=== PATIENT | male | born 1965 | race Caucasian/White ===

== ENCOUNTER 2018-10-16 16:43 | Emergency (ER) | payer BC, MEDICAID ==
[2018-10-16] MEDS ORDERED: Lidocaine 1% with EPINEPHrine 1:100,000 20 ML MDV ONE (17:45)
--- NOTE | 2018-10-16 18:21 | EDM.PDOC ---
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 Accidentally the finish grinder sipped and the blade hit the right hand over the dorsum of the hand. Happened just prior to arrival. Pt did wash the wound under clear running water and apply pressure and came into emergency room.No tingling or numbness. No pain in the wound. But actively bleeding. Pt is up to date on his tetanus . No other injuries. Onset: Today Onset Time: 16:00 Location: Reports: Upper Extremity, Right Quality: Reports: Ache Severity: Mild Improves with: Reports: None Worsens with: Reports: None Associated Symptoms: Denies: Confusion, Chest Pain, Cough, Diaphoresis, Fever/ Chills, Headaches, Nausea/Vomiting, Rash, Seizure, Shortness of Breath, Syncope , Weakness - Related Data Allergies Allergy/AdvReac Type Severity Reaction Status Date / Time No Known Allergies Allergy Verified 07/05/18 16:02 Home Meds: Home Meds NK [No Known Home Meds] 07/05/18 [History] Past Medical History - Past Health History Medical/Surgical History: Denies Medical/Surgical History ED ROS GENERAL - Review of Systems Review Of Systems: See Below Constitutional: Denies: Fever, Chills HEENT: Denies: Rhinitis, Throat Pain Respiratory: Denies: Shortness of Breath, Pleuritic Chest Pain, Cough, Sputum Cardiovascular: Denies: Chest Pain, Lightheadedness GI/Abdominal: Denies: Abdominal Pain, Nausea, Vomiting : Denies: Dysuria, Frequency Musculoskeletal: Denies: Joint Pain, Joint Swelling Skin: Reports: Bruising, Wound. Denies: Pruritis, Rash Neurological: Denies: Confusion, Dizziness, Numbness, Tingling ED EXAM, GENERAL - Physical Exam Exam: See Below Exam Limited By: No Limitations General Appearance: Alert, WD/WN, No Apparent Distress Eye Exam: Bilateral Eye: EOMI, PERRL Ears: Normal External Exam, Normal Canal, Hearing Grossly Normal, Normal TMs Ear Exam: Bilateral Ear: Auricle Normal, Canal Normal, TM normal Nose: Normal Inspection, Normal Mucosa, No Blood Throat/Mouth: Normal Inspection, Normal Lips, Normal Teeth, Normal Gums, Normal Oropharynx, Normal Voice, No Airway Compromise Head: Atraumatic, Normocephalic Neck: Normal Inspection, Supple, Non-Tender, Full Range of Motion Respiratory/Chest: No Respiratory Distress, Lungs Clear, Normal Breath Sounds, No Accessory Muscle Use, Chest Non-Tender Cardiovascular: Normal Peripheral Pulses, Regular Rate, Rhythm, No Edema, No Gallop, No JVD, No Murmur, No Rub Extremities: Normal Inspection, Normal Range of Motion, Non-Tender, Normal Capillary Refill, No Pedal Edema Skin Exam: Warm, Intact, Other (Right hand: there is a 2.5cm long clean clear cut laceration over the dorsum of the hand over the websapce between the thumb and Index finger. The cut is extending into subcutaneous tissue. No muscle involvement. Pt has Good ROM motion of the small joints of the finger. Good Hand systems analyst developer. Wound is actively bleeding.) ED GENERAL MEDICAL PROCEDURES - Laceration/Wound Repair Right Hand Lac/wound length in cm: 2.5 Appearance: Superficial, Subcutaneous, Linear Distal NVT: Neuro & Vascular Intact Anesthetic Type: Local Local Anesthesia - Lidocaine (Xylocaine): 1% with EPI Local Anesthetic Volume: 2cc Skin Prep: Providone-Iodine (Betadine), Saline Saline irrigation (cc's): 50 Closed with: Sutures Suture Size: 4-0 # of Sutures: 5 Suture Type: Interrupted, Other (ethilon) Sterile Dressing Applied: Provider Tetanus Status Addressed: Yes Complications: No Course - Vital Signs Text/Narrative:: Pt reassured, after consent obtained, the wound was closed under septic precautions. Simple pressure dressing applied. Advised not to wet wound for 2 days. after that can shower and let soap and water run on it. Apply simple antibiotic ointment and keep it covered. Suture removal in 1 wk. Wound care and infection precautions discussed. Advised not to do heavy duty work with his right hand for 1 wk.Followup with primary care provider for suture removal. Departure - Departure Time of Disposition: 18:15 Disposition: Home, Self-Care 01 Condition: Good Clinical Impression: Hand laceration - Discharge Information *PRESCRIPTION DRUG MONITORING PROGRAM REVIEWED*: Not Applicable *COPY OF PRESCRIPTION DRUG MONITORING REPORT IN PATIENT JAVIER: Not Applicable Instructions: Laceration Care, Adult Care Plan Goals: Keep dry x 2 days. Can have clean water on it to rinse off after that. No scrubbing. After rinsing put antibiotic ointment on it. On day 7 can have sutures removed. Can go to and have Nyasia Smith CNP remove them if you would like. Watch for signs of infection, redness, increased pain, purulent drainage and return to Health care provider with any of these symptoms. No use of right hand. - Problem List & Annotations (1) Hand laceration SNOMED Code(s): 766088021 Code(s): S61.419A - LACERATION WITHOUT FOREIGN BODY OF UNSP HAND, INIT ENCNTR Status: Acute - Problem List Review Problem List Initiated/Reviewed/Updated: Yes - Assessment/Plan Assessment:: 2.5 cm right hand laceration Plan: Pt reassured, after consent obtained, the wound was closed under septic precautions. Simple pressure dressing applied. Advised not to wet wound for 2 days. after that can shower and let soap and water run on it. Apply simple antibiotic ointment and keep it covered. Suture removal in 1 wk. Wound care and infection precautions discussed. Advised not to do heavy duty work with his right hand for 1 wk.Followup with primary care provider for suture removal.
== END 2018-10-16 18:06 | disposition home or self-care (01) ==
LOC: LB.ED 16:43
DX: S61.411A Laceration without foreign body of right hand, initial encounter (principal); W31.89XA Contact with other specified machinery, initial encounter
CPT/HCPCS: 12001; 99283

== ENCOUNTER 2020-06-16 14:06 | Emergency (ER) | payer BC, MEDICAID ==
[2020-06-16] MEDS: Ketorolac 60 MG/2 ML SDV IM ONE (15:28)
[2020-06-16] MEDS: Diphtheria,Pertussis(Acell),Tetanus Vaccine 0.5 ML SDV IM ONE (15:36)
--- NOTE | 2020-06-16 15:37 | EDM.PDOC ---
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 Last tetanus immunization 2013. No loss of motion, no numbness/tingling. - Related Data Allergies Allergy/AdvReac Type Severity Reaction Status Date / Time No Known Allergies Allergy Verified 06/16/20 15:14 Home Meds: Home Meds RX: Tiotropium [Spiriva HandiHaler] 1 inhalation INH DAILY 06/16/20 [History] Past Medical History - Past Health History Medical/Surgical History: Denies Medical/Surgical History Review of Systems - Review of Systems Review Of Systems: See Below Constitutional: Reports: No Symptoms Respiratory: Reports: No Symptoms Cardiovascular: Reports: No Symptoms Musculoskeletal: Reports: Hand Pain, Other (left hand puncture wound) Skin: Reports: Wound Neurological: Reports: No Symptoms Psychiatric: Reports: No Symptoms ED EXAM, GENERAL - Physical Exam Exam: See Below Exam Limited By: No Limitations General Appearance: Alert, No Apparent Distress Respiratory/Chest: No Respiratory Distress Peripheral Pulses: 2+: Radial (L) Extremities: Normal Range of Motion, Normal Capillary Refill, Other (puncture wounds to left ventral thumb muscle and dorsal webbing between 1st and 2nd digit; no deformity; no bleeding; patient able to make ok sign, thumbs up sign, and make fist) Psychiatric: Normal Affect, Normal Mood Skin Exam: Warm, Dry, Wound/Incision Course - Vital Signs Text/Narrative:: toradol 60 mg IM, wound cleaned by nursing, tetanus immunization given. XR negative for fractures or foreign bodies. - Orders/Labs/Meds Orders: Active Orders 24 hr Category Date Time Status Vaccines to be Administered [RC] PER UNIT ROUTINE Care 06/16/20 15:17 Active Hand Comp Min 3V Lt [CR] Stat Exams 06/16/20 15:15 Taken Meds: Medications Discontinued Medications Generic Name Dose Route Start Last Admin Trade Name Freq PRN Reason Stop Dose Admin Diphtheria/Tetanus/Acell Pertussis 0.5 ml 06/16/20 15:16 Boostrix IM 06/16/20 15:17 .ONCE ONE Ketorolac Tromethamine Confirm 06/16/20 15:19 Toradol Administered 06/16/20 15:20 Dose 60 mg .ROUTE .STK-MED ONE Ketorolac Tromethamine 60 mg 06/16/20 15:14 Toradol IM 06/16/20 15:15 ONETIME ONE Departure - Departure Time of Disposition: 15:50 Disposition: Home, Self-Care 01 Condition: Good Clinical Impression: Puncture wound - Discharge Information *PRESCRIPTION DRUG MONITORING PROGRAM REVIEWED*: Not Applicable *COPY OF PRESCRIPTION DRUG MONITORING REPORT IN PATIENT JAVIER: Not Applicable Referrals: PCP,None [Primary Care Provider] - Additional Instructions: Keep hand clean and dry. No soaking hand. No peroxide. No ointments. Shower fine. Return to the ED for fever >102, unable to tolerate fluids, or hand swelling/redness. can take motrin tomorrow as directed after 4 pm with food. tylenol as directed for pain. - My Orders Last 24 Hours: My Active Orders 06/16/20 15:15 Hand Comp Min 3V Lt [CR] Stat 06/16/20 15:17 Vaccines to be Administered [RC] PER UNIT ROUTINE - Assessment/Plan Last 24 Hours: My Active Orders 06/16/20 15:15 Hand Comp Min 3V Lt [CR] Stat 06/16/20 15:17 Vaccines to be Administered [RC] PER UNIT ROUTINE
[2020-06-16] MEDS: Ketorolac 60 MG/2 ML SDV ONE (15:39)
--- NOTE | 2020-06-17 09:19 | CR ---
Date of Service: 06/16/20 Clinical Data: puncture wound LEFT HAND: There is soft tissue swelling adjacent to the distal phalanx of the thumb. There are mild osteoarthritic changes involving multiple joints. No acute fracture or dislocation. No lytic or blastic bone lesions. No radio dense foreign bodies. [id number] [facility]
== END 2020-06-16 16:45 | disposition home or self-care (01) ==
LOC: LB.ED 14:06
DX: S61.432A Puncture wound without foreign body of left hand, initial encounter (principal); Z23 Encounter for immunization; W31.0XXA Contact with mining and earth-drilling machinery, initial encounter
CPT/HCPCS: 73130-LT; 90471; 90715; 96372; 99283-25; J1885

== ENCOUNTER 2021-02-12 17:06 | Emergency (ER) | payer BC, MEDICAID ==
[2021-02-12] MEDS ORDERED: Amoxicillin/Clavulanate K 875-125 MG Tab PO ONE (17:45)
--- NOTE | 2021-02-12 17:55 | EDM.PDOC ---
ED HPI GENERAL MEDICAL PROBLEM - General Chief Complaint: General Stated Complaint: TOOTHACHE Time Seen by Provider: 02/12/21 17:40 Source of Information: Reports: Patient History Limitations: Reports: No Limitations - History of Present Illness INITIAL COMMENTS - FREE TEXT/NARRATIVE: pt states tooth sensitivity to left lower 1st bicuspid with swelling and pain to left lower gumline. pt denies fever, chills, drainage. history of dental infections and poor dentition including dental caries. symptoms started approximately 3-4 days ago and worsened throughout the day today. Left Tooth/Teeth Pain Score (Numeric/FACES): 10 - Related Data Allergies Allergy/AdvReac Type Severity Reaction Status Date / Time No Known Allergies Allergy Verified 02/12/21 17:42 Home Meds: Home Meds Tiotropium [Spiriva HandiHaler] 1 inhalation INH DAILY 06/16/20 [History] Amoxicillin/Potassium Clav [Augmentin 875-125 Tablet] 1 each PO BID 7 Days #14 tablet 02/12/21 [Rx] Past Medical History - Past Health History Medical/Surgical History: Denies Medical/Surgical History Respiratory History: Reports: COPD Social & Family History - Tobacco Use Years of Tobacco use: 40 Packs/Tins Daily: 1 - Caffeine Use Caffeine Use: Reports: Coffee - Recreational Drug Use Recreational Drug Use: No ED ROS GENERAL - Review of Systems Review Of Systems: Comprehensive ROS is negative, except as noted in HPI. ED EXAM, GENERAL - Physical Exam Exam: See Below Exam Limited By: No Limitations General Appearance: Alert, WD/WN, No Apparent Distress Throat/Mouth: Normal Lips, Inflammation, Other (swelling and TTP to left lower buccal gumline. no swelling or TTP to lingual gumline of left lower. diffuse poor dentition with multiple caries. left lower 1st bicuspid is broken and missing posterior portion for unknown time.) Neurological: Alert, Oriented, Normal Cognition, Normal Gait Psychiatric: Normal Affect, Normal Mood Skin Exam: Warm, Dry, Intact, No Rash ED GENERAL MEDICAL PROCEDURES - Additional/Other Procedure(s) Other (Free Text) Procedure(s): discussed risks and benefits of dental block of left lower bicuspid to include relief of pain vs risk of nerve damage, vessel damage, pt agreeable to dental block. verbal consent provided by pt. 3ml of bupivicaine 0.5% at Inferior alveolar block and 1ml as incisive block. pt states almost complete relief from pain. no adverse events noted and pt tolerated procedure well. Course - Vital Signs Last Recorded V/S: Last Vital Signs Temp 97.7 F 02/12/21 17:44 Pulse 92 02/12/21 17:44 Resp 20 02/12/21 17:44 BP 129/84 02/12/21 17:44 Pulse Ox 97 02/12/21 17:44 - Orders/Labs/Meds Meds: Medications Discontinued Medications Generic Name Dose Route Start Last Admin Trade Name Damien PRN Reason Stop Dose Admin Amoxicillin/Clavulanate Potassium 1 tab 02/12/21 17:45 Amoxicillin/Clavulanate K 875-125 Mg Tab PO 02/12/21 17:46 ONETIME ONE Departure - Departure Time of Disposition: 18:21 Disposition: Home, Self-Care 01 Condition: Good Clinical Impression: Dental infection - Discharge Information *PRESCRIPTION DRUG MONITORING PROGRAM REVIEWED*: Not Applicable *COPY OF PRESCRIPTION DRUG MONITORING REPORT IN PATIENT JAVIER: Not Applicable Prescriptions: Amoxicillin/Potassium Clav [Augmentin 875-125 Tablet] 1 each PO BID 7 Days #14 tablet Referrals: PCP,None [Primary Care Provider] - Additional Instructions: tylenol 1,000mg and ibuprofen 600mg four times a day 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 augmentin twice daily follow up with a dentist TED Sepsis Event Note (ED) - Evaluation Sepsis Screening Result: No Definite Risk - Focused Exam Vital Signs: Vital Signs Temp Pulse Resp BP Pulse Ox 02/12/21 17:44 97.7 F 92 20 129/84 97 - Problem List & Annotations (1) Dental infection SNOMED Code(s): 142287013 Code(s): K04.7 - PERIAPICAL ABSCESS WITHOUT SINUS Status: Acute - Problem List Review Problem List Initiated/Reviewed/Updated: Yes - Assessment/Plan Assessment:: assessment: dental infection plan: dental block and abx. first dose augmentin here and prescription sent electronically.
[2021-02-12] MEDS ORDERED: Bupivacaine 0.5% 10 ML SDV INJECT ONE (17:57)
== END 2021-02-12 18:21 | disposition home or self-care (01) ==
LOC: LB.ED 17:06
DX: K04.7 Periapical abscess without sinus (principal); J44.9 Chronic obstructive pulmonary disease, unspecified; Z72.0 Tobacco use
CPT/HCPCS: 64400; 99282-25; A9270-GY; J3490